=== PATIENT | male | born 1960 | race Caucasian/White ===

== ENCOUNTER → 2020-12-16 | Outpatient (CLI) | payer BC ==
[~2020-12-16] VITALS: Ht 180.3 cm; Wt 122.5 kg
[~2020-12-16] MED LIST: COZAAR 25 MG TA25 M1 PO; HUMALOG100 UNIT/1 SUBQ; JARDIANCE25 MG PO; LANTUS SUBQ; LOPRESSOR50 MG PO; XARELTO20 MG PO; ZOCOR 20 MG TAB20 M1 PO
[2020-12-16 11:20] VITALS: BP 137/89
--- NOTE | 2020-12-16 12:20 | NUR ---
Pain Clinic Assessment: 1. History of Osteoarthritis: NA4 History of Rheumatoid Arthritis: Not Applicable 2. Height: 5 ft. 11 in. 180.3 cm. Weight: 270.0 lb. oz. 122.472 kg. Patient's BMI: 37.7 3. Vital Signs: BP: 137/89 Pulse: 70 Resp: 16 Temp: 02 Sat: 96 ECG Mon: 4. Pain Intensity: 5 5. Fall Risk: Dizziness: N Needs help standing or walking: N Fallen in the last 3 months: N Fall risk comments: 6. Patient on Blood Thinner: XARELTO 7. History of Hypertension: Y 8. Opioid Therapy greater than 6 weeks: N Opiate Contract Signed: 9. Risk Assessment Tool Provided: 2 LOW RISK 10. Functional Assessment Tool: 11. Recreational Drug Use: Never Drug Type: Tobacco Use: Never Smoker Tobacco Type: Amount or Packs/day: How Many Years: Alcohol Use: Yes Frequency: Weekly Quant: 4
== END ==
LOC: PAIN 08:28
PROVIDERS: ATTEND Anesthesiology Pain Medicine
DX: M54.16 Radiculopathy, lumbar region (principal); M46.1 Sacroiliitis, not elsewhere classified; I10 Essential (primary) hypertension; E11.9 Type 2 diabetes mellitus without complications; Z72.89 Other problems related to lifestyle; Z79.4 Long term (current) use of insulin

== ENCOUNTER → 2020-12-20 | Outpatient (CLI) | payer BC ==
[~2020-12-20] VITALS: Ht 180.3 cm; Wt 120.5 kg
[2020-12-20 13:47] VITALS: BP 161/78
--- NOTE | 2020-12-20 13:55 | NUR ---
Pain Clinic Assessment: 1. History of Osteoarthritis: NA4 History of Rheumatoid Arthritis: Not Applicable 2. Height: 5 ft. 11 in. 180.3 cm. Weight: 265.6 lb. oz. 120.476 kg. Patient's BMI: 37.1 3. Vital Signs: BP: 161/78 Pulse: 82 Resp: 16 Temp: 02 Sat: 93 ECG Mon: 4. Pain Intensity: 5 5. Fall Risk: Dizziness: N Needs help standing or walking: N Fallen in the last 3 months: N Fall risk comments: 6. Patient on Blood Thinner: XARELTO 7. History of Hypertension: Y 8. Opioid Therapy greater than 6 weeks: N Opiate Contract Signed: 9. Risk Assessment Tool Provided: 2 LOW RISK 10. Functional Assessment Tool: 11. Recreational Drug Use: Never Drug Type: Tobacco Use: Never Smoker Tobacco Type: Amount or Packs/day: How Many Years: Alcohol Use: Yes Frequency: Quant:
== END | disposition home or self-care (01) ==
LOC: PAIN 11:06
PROVIDERS: ATTEND Anesthesiology Pain Medicine
DX: M53.3 Sacrococcygeal disorders, not elsewhere classified (principal); I10 Essential (primary) hypertension; E66.9 Obesity, unspecified; Z98.890 Other specified postprocedural states; Z79.899 Other long term (current) drug therapy; Z79.01 Long term (current) use of anticoagulants; Z88.8 Allergy status to other drugs, medicaments and biological substances; Z68.37 Body mass index [BMI] 37.0-37.9, adult

== ENCOUNTER → 2021-02-21 | Outpatient (CLI) | payer BC, OTHER ==
[~2021-02-21] VITALS: Ht 180.3 cm; Wt 121.3 kg
[2021-02-21 12:43] VITALS: BP 143/91
--- NOTE | 2021-02-21 13:05 | NUR ---
Pain Clinic Assessment: 1. History of Osteoarthritis: Not Applicable History of Rheumatoid Arthritis: Not Applicable 2. Height: 5 ft. 11 in. 180.3 cm. Weight: 267.4 lb. oz. 121.292 kg. Patient's BMI: 37.3 3. Vital Signs: BP: 143/91 Pulse: 83 Resp: 18 Temp: 02 Sat: 97 ECG Mon: 4. Pain Intensity: 0 TO 9 5. Fall Risk: Dizziness: N Needs help standing or walking: N Fallen in the last 3 months: N Fall risk comments: 6. Patient on Blood Thinner: XARELTO 7. History of Hypertension: Y 8. Opioid Therapy greater than 6 weeks: N Opiate Contract Signed: 9. Risk Assessment Tool Provided: 2 LOW RISK 10. Functional Assessment Tool: 11. Recreational Drug Use: Never Drug Type: Tobacco Use: Never Smoker Tobacco Type: Amount or Packs/day: How Many Years: Alcohol Use: Yes Frequency: Weekly Quant: 3 TO 4
== END | disposition home or self-care (01) ==
LOC: PAIN 01-24 07:10
PROVIDERS: ATTEND Anesthesiology Pain Medicine
DX: M47.26 Other spondylosis with radiculopathy, lumbar region (principal); M96.1 Postlaminectomy syndrome, not elsewhere classified; M53.3 Sacrococcygeal disorders, not elsewhere classified; G89.29 Other chronic pain; I10 Essential (primary) hypertension; Z98.890 Other specified postprocedural states; Z79.899 Other long term (current) drug therapy; Z79.01 Long term (current) use of anticoagulants

== ENCOUNTER → 2021-03-28 | Outpatient (CLI) | payer BC, OTHER ==
[~2021-03-28] VITALS: Ht 180.3 cm; Wt 118.9 kg
[~2021-03-28] MED LIST changes: +ALEVE220 M1 PO; +NON-ASPIRIN EX500 M1 PO
[2021-03-28 11:50] VITALS: BP 127/82
--- NOTE | 2021-03-28 12:11 | NUR ---
Pain Clinic Assessment: 1. History of Osteoarthritis: Not Applicable History of Rheumatoid Arthritis: Not Applicable 2. Height: 5 ft. 11 in. 180.3 cm. Weight: 262.2 lb. oz. 118.933 kg. Patient's BMI: 36.6 3. Vital Signs: BP: 127/82 Pulse: 89 Resp: 20 Temp: 02 Sat: 96 ECG Mon: 4. Pain Intensity: 6 WHEN WALKING 5. Fall Risk: Dizziness: N Needs help standing or walking: N Fallen in the last 3 months: N Fall risk comments: 6. Patient on Blood Thinner: XARELTO 7. History of Hypertension: Y 8. Opioid Therapy greater than 6 weeks: N Opiate Contract Signed: 9. Risk Assessment Tool Provided: 2 LOW RISK 10. Functional Assessment Tool: 11. Recreational Drug Use: Never Drug Type: Tobacco Use: Never Smoker Tobacco Type: Amount or Packs/day: How Many Years: Alcohol Use: Yes Frequency: Quant:
== END ==
LOC: PAIN 11:25
PROVIDERS: ATTEND Anesthesiology Pain Medicine
DX: M96.1 Postlaminectomy syndrome, not elsewhere classified (principal); M47.27 Other spondylosis with radiculopathy, lumbosacral region; Z79.4 Long term (current) use of insulin; Z79.899 Other long term (current) drug therapy